=== PATIENT | male | born 1935 | race Caucasian/White ===

== ENCOUNTER → 2016-07-30 | Outpatient (CLI) | payer MEDICARE, BC ==
[~2016-07-30] MED LIST: ASCO10007 PO; ASPI-611 PO; ATOR40TA PO; FERR-70 PO; FISH1CAP2 PO; GLUC1500 PO; LATA2.5D7 BOTH EYES; METO50TA5 PO; MULT-933 PO; POLY17PO6 PO; VIT1CAPS21 PO; stool softener PO
[2016-07-30 16:35] LABS: BASOPHILS % (AUTO) 0.6 % (0-2); EOSINOPHILS # (AUTO) 0.2 T/MM3 (0-0.5); EOSINOPHILS % (AUTO) 2.9 % (0-4); HCT - HEMATOCRIT 27.2 % (41-53); HGB - HEMOGLOBIN 8.5 GM/DL (13.5-17.5); IMMATURE GRANULOCYTE # (AUTO) 0.04 T/MM3 (0.00-0.03); IMMATURE GRANULOCYTE % (AUTO) 0.6 % (0.0-0.5); LYMPHOCYTES % (AUTO) 14.6 % (23-45); MEAN CORPUSCULAR HGB 27.7 UUG (26-34); MEAN CORPUSCULAR HGB CONC(MCHC 31.3 GM/DL (31-37); MEAN CORPUSCULAR VOLUME 88.6 UM3 (80-100); MEAN PLATELET VOLUME 8.9 UM3 (9.4-12.4); MONOCYTES # (AUTO) 0.6 T/MM3 (0-0.8); MONOCYTES % (AUTO) 8.6 % (0-9.0); NEUTROPHILS % (AUTO) 72.7 % (33-66); RED BLOOD COUNT 3.07 M/MM3 (4.50-5.90); WBC - WHITE BLOOD COUNT 6.9 T/MM3 (4.5-11.0)
[2016-07-30 16:41] LABS: INR 1.45 (0.76-1.04); PROTHROMBIN TIME 15.8 SEC (9.31-12.49); PTT 30.3 SEC (24-36)
[2016-07-30 16:43] LABS: POTASSIUM 4.8 MEQ/L (3.6-5)
[2016-07-30 16:44] LABS: ALBUMIN 3.7 G/DL (3.5-5.0); ALBUMIN/GLOBULIN RATIO 1.2 RATIO (1.1-2.2); ALKALINE PHOSPHATASE 55 U/L (38-126); ALT (SGPT) 46 U/L (21-72); ANION GAP 12 MEQ/L (5-15); AST (SGOT) 21 U/L (17-59); BUN/CREATININE RATIO 18 RATIO (6-26); CALCIUM 9.4 MG/DL (8.4-10.2); CHLORIDE 105 MEQ/L (98-107); CO2 - CARBON DIOXIDE 27 MEQ/L (22-30); CREATININE 1.4 MG/DL (0.8-1.5); GLOMERULAR FILTRATION RATE 49; GLUCOSE 114 MG/DL (75-110); SODIUM 144 MEQ/L (134-144); TOTAL PROTEIN 6.8 G/DL (6.3-8.2)
== END ==
LOC: LAB 16:16
PROVIDERS: ATTEND Internal Medicine
DX: K92.2 Gastrointestinal hemorrhage, unspecified (principal); D64.9 Anemia, unspecified; N18.3 Chronic kidney disease, stage 3 (moderate)
CPT/HCPCS: 36415; 80053; 85025; 85610; 85730